=== PATIENT | female | born 1950 | race Caucasian/White ===

== ENCOUNTER 2018-03-10 10:51 | Emergency (ER) | payer MEDICARE, BC ==
[2018-03-10] MEDS ORDERED: Sodium Chloride 0.9% 10 ML Syringe FLUSH PRN (11:14)
[2018-03-10] MEDS ORDERED: Sodium Chloride 0.9% 1,000 ML IV SCH (11:15)
[2018-03-10] MEDS ORDERED: HYDROmorphone 0.5 MG/0.5 ML Syringe IVPUSH PRN (11:51)
[2018-03-10] MEDS ORDERED: Iopamidol 612 MG/ML 100 ML Bottle IV PRN (11:53)
[2018-03-10 13:04] VITALS: BP 125/39
--- NOTE | 2018-03-10 13:29 | CT ---
Abdomen Pelvis w Cont INDICATION: lower right quadrant pain X3 days, N/v TECHNIQUE: CT images of the abdomen and pelvis performed. Coronal reformatted images obtained. IV contrast only Dosage reduction and iterative reconstruction techniques employed. COMPARISON: None FINDINGS: 4 mm nodule right lower lobe likely benign. Fatty infiltration of the liver. Gallbladder surgically absent. Spleen, pancreas, and adrenal glands unremarkable. Tiny cortical cyst right kidne y. No renal calculi or hydronephrosis on either side. Ureters and urinary bladder are clear. Normal a ppendix. Approximately 4 cm diverticulum arising from a mid to distal loop of ileum in the pelvis, se ramesh 2 image 102. No significant wall thickening or fat stranding associated with this diverticulum. Sigmoid diverticulosis without evidence of diverticulitis. No signs of bowel obstruction. Abdominal a latrice normal caliber. No adenopathy seen. Degenerative and hypertrophic change in the spine. Neurostim ulator device entering the sacrum on the right. IMPRESSION: 1. Nothing acute. 2. Prominent small bowel diverticulum, but no acute inflammatory changes associated with this diverti culum. 3. Other nonacute incidental findings, as above.
--- NOTE | 2018-03-10 13:38 | EDM.PDOC ---
ED HPI GENERAL MEDICAL PROBLEM - General Chief Complaint: Abdominal Pain Stated Complaint: RT SIDE PAIN, NAUSEA, LOSS OF APPETITE Time Seen by Provider: 03/10/18 11:09 - History of Present Illness INITIAL COMMENTS - FREE TEXT/NARRATIVE: She is sent from clinic with lower right quad pain. She hasn't felt well for the last couple of days No fever, some nausea. No vomiting; loose stools, which is normal for her. Onset: Gradual Location: Reports: Abdomen (RLQ) Severity: Mild Improves with: Reports: None Worsens with: Reports: None Abdomen Pain Score (Numeric/FACES): 4 - Related Data Allergies Allergy/AdvReac Type Severity Reaction Status Date / Time egg yolk Allergy Blisters Verified 03/10/18 11:08 Influenza Virus Vaccines Allergy Rash Verified 03/10/18 11:08 Beta-Blockers AdvReac Fatigue Verified 03/10/18 11:08 (Beta-Adrenergic Bloc Calcium Channel Blocking AdvReac Drowsiness Verified 03/10/18 11:58 Agent Dilt gemfibrozil AdvReac Cannot Verified 03/10/18 11:08 Remember lisinopril AdvReac Cough Verified 03/10/18 11:08 Home Meds: Home Meds Acetaminophen [Tylenol Extra Strength] 1,000 mg PO Q6H PRN 10/04/16 [History] Cetirizine [ZyrTEC] 10 mg PO DAILY 10/04/16 [History] Diclofenac Sodium [Voltaren] 75 mg PO BIDMEALS 10/04/16 [History] Ergocalciferol (Vitamin D2) [Vitamin D] 5,000 unit PO DAILY 10/04/16 [History] Estradiol [Climara] 1 patch TD WEEKLY 10/04/16 [History] Fenofibrate Nanocrystallized [Triglide] 160 mg PO DAILY 10/04/16 [History] Multivitamin with Minerals [Multiple Vitamin] 1 tab PO DAILY 10/04/16 [History] Omeprazole 40 mg PO DAILY 10/04/16 [History] Sertraline HCl 150 mg PO DAILY 10/04/16 [History] Spironolactone [Aldactone] 50 mg PO DAILY 10/04/16 [History] Triamterene/Hydrochlorothiazid [Dyazide 37.5-25] 1 cap PO DAILY 10/04/16 [ History] traZODone 50 mg PO BEDTIME 10/04/16 [History] Ketoprofen 10% Topical Gel 1 applic TOP TID PRN 10/08/16 [History] Ferrous Sulfate 325 mg PO BID 10/08/17 [History] Glucosamine Sulfate 500 mg PO BID 12/17/17 [History] Sulfamethoxazole/Trimethoprim [Bactrim Ds Tablet] 1 each PO BID #14 tablet 03/10 [Rx] Past Medical History HEENT History: Reports: Impaired Vision Other HEENT History: 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, wears glasses Cardiovascular History: Reports: Arrhythmia, Heart Murmur, High Cholesterol, Hypertension Respiratory History: Reports: Other (See Below) Other Respiratory History: sarcardosis Gastrointestinal History: Reports: Chronic Constipation Other Genitourinary History: in stem bladder implant 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, Musculoskeletal History: Reports: Fracture Other Musculoskeletal History: fx left wrist Psychiatric History: Reports: Depression Endocrine/Metabolic History: Reports: Other (See Below) Other Endocrine/Metabolic History: goiter - Infectious Disease History Infectious Disease History: Reports: Chicken Pox, Measles, Mumps, Rubella - Past Surgical History HEENT Surgical History: Reports: Oral Surgery, Tonsillectomy GI Surgical History: Reports: Cholecystectomy Female Surgical History: Reports: Hysterectomy, Salpingo-Oophorectomy Social & Family History - Family History Family Medical History: Noncontributory - Tobacco Use Smoking Status *Q: Never Smoker - Caffeine Use Caffeine Use: Reports: Soda, Tea - Recreational Drug Use Recreational Drug Use: No ED ROS GENERAL - Review of Systems Review Of Systems: See Below Constitutional: Reports: Fatigue, Decreased Appetite Respiratory: Reports: No Symptoms Cardiovascular: Reports: No Symptoms GI/Abdominal: Reports: Abdominal Pain (RLQ) : Reports: No Symptoms Musculoskeletal: Reports: No Symptoms Skin: Reports: No Symptoms Neurological: Reports: No Symptoms ED EXAM, GENERAL - Physical Exam Exam: See Below Exam Limited By: No Limitations General Appearance: Alert, WD/WN, No Apparent Distress Throat/Mouth: Normal Inspection, Normal Gums, Normal Oropharynx, No Airway Compromise Head: Atraumatic, Normocephalic Neck: Normal Inspection, Full Range of Motion Respiratory/Chest: No Respiratory Distress, Lungs Clear, Normal Breath Sounds Cardiovascular: Regular Rate, Rhythm, No Edema GI/Abdominal: Normal Bowel Sounds, Soft, Guarding, Other (RLQ pain) Back Exam: Normal Inspection, Full Range of Motion Extremities: Normal Inspection, Normal Range of Motion, Non-Tender Neurological: Alert, Oriented, CN II-XII Intact, Normal Cognition, Normal Gait Psychiatric: Normal Affect, Normal Mood Skin Exam: Warm, Dry, No Rash Course - Vital Signs Last Recorded V/S: Last Vital Signs Temp 97.6 F 03/10/18 11:34 Pulse 63 03/10/18 13:02 Resp 13 03/10/18 13:02 BP 125/39 L 03/10/18 13:02 Pulse Ox 87 L 03/10/18 13:02 - Orders/Labs/Meds Orders: Active Orders 24 hr Category Date Time Status Peripheral IV Care [RC] . DIRECTED Care 03/10/18 11:14 Active CULTURE URINE [RM] Stat Lab 03/10/18 14:02 Received UA W/MICROSCOPIC [URIN] Stat Lab 03/10/18 12:40 Ordered Peripheral IV Insertion Adult [OM.PC] Stat Oth 03/10/18 11:14 Ordered Labs: Laboratory Tests 03/10/18 03/10/18 03/10/18 Range/Units 11:23 11:23 11:23 WBC 4.1 L (4.5-11.0) K/uL RBC 3.98 (3.30-5.50) M/uL Hgb 11.3 L (12.0-15.0) g/dL Hct 33.4 L (36.0-48.0) % MCV 84 (80-98) fL MCH 28 (27-31) pg MCHC 34 (32-36) % Plt Count 294 (150-400) K/uL Neut % (Auto) 71 H (36-66) % Lymph % (Auto) 18 L (24-44) % [place] % (Auto) 9 H (2-6) % Eos % (Auto) 2 (2-4) % Baso % (Auto) 1 (0-1) % Sodium 131 L (140-148) mmol/L Potassium 4.7 (3.6-5.2) mmol/L Chloride 95 L (100-108) mmol/L Carbon Dioxide 27 (21-32) mmol/L Anion Gap 13.7 (5.0-14.0) mmol/L BUN 38 H (7-18) mg/dL Creatinine 1.2 H (0.6-1.0) mg/dL Est Cr Clr Drug Dosing 34.50 mL/min Estimated GFR (MDRD) 44 L (>60) Glucose 95 (74-106) mg/dL Calcium 9.6 (8.5-10.1) mg/dL Total Bilirubin 0.4 (0.2-1.0) mg/dL AST 34 (15-37) U/L ALT 33 (12-78) U/L Alkaline Phosphatase 48 (46-116) U/L Total Protein 7.4 (6.4-8.2) g/dL Albumin 4.2 (3.4-5.0) g/dL Globulin 3.2 (2.3-3.5) g/dL Albumin/Globulin Ratio 1.3 (1.2-2.2) Amylase 58 (25-115) U/L Lipase 158 (73-393) U/L Urine Color Urine Appearance Urine pH (4.5-8.0) Ur Specific [place] (1.008-1.030) Urine Protein (NEGATIVE) mg/dL Urine Glucose (UA) (NEGATIVE) mg/dL Urine Ketones (NEGATIVE) mg/dL Urine Occult Blood (NEGATIVE) Urine Nitrite (NEGATIVE) Urine Bilirubin (NEGATIVE) Urine Urobilinogen (NORMAL) mg/dL Ur Leukocyte Esterase (NEGATIVE) Urine RBC (0-5) Urine WBC (0-5) Ur Epithelial Cells Amorphous Sediment Urine Bacteria Urine Mucus 03/10/18 Range/Units 12:40 WBC (4.5-11.0) K/uL RBC (3.30-5.50) M/uL Hgb (12.0-15.0) g/dL Hct (36.0-48.0) % MCV (80-98) fL MCH (27-31) pg MCHC (32-36) % Plt Count (150-400) K/uL Neut % (Auto) (36-66) % Lymph % (Auto) (24-44) % [place] % (Auto) (2-6) % Eos % (Auto) (2-4) % Baso % (Auto) (0-1) % Sodium (140-148) mmol/L Potassium (3.6-5.2) mmol/L Chloride (100-108) mmol/L Carbon Dioxide (21-32) mmol/L Anion Gap (5.0-14.0) mmol/L BUN (7-18) mg/dL Creatinine (0.6-1.0) mg/dL Est Cr Clr Drug Dosing mL/min Estimated GFR (MDRD) (>60) Glucose (74-106) mg/dL Calcium (8.5-10.1) mg/dL Total Bilirubin (0.2-1.0) mg/dL AST (15-37) U/L ALT (12-78) U/L Alkaline Phosphatase (46-116) U/L Total Protein (6.4-8.2) g/dL Albumin (3.4-5.0) g/dL Globulin (2.3-3.5) g/dL Albumin/Globulin Ratio (1.2-2.2) Amylase (25-115) U/L Lipase (73-393) U/L Urine Color Yellow Urine Appearance Clear Urine pH 6.0 (4.5-8.0) Ur Specific [place] 1.010 (1.008-1.030) Urine Protein Negative (NEGATIVE) mg/dL Urine Glucose (UA) Normal (NEGATIVE) mg/dL Urine Ketones Negative (NEGATIVE) mg/dL Urine Occult Blood Negative (NEGATIVE) Urine Nitrite Negative (NEGATIVE) Urine Bilirubin Negative (NEGATIVE) Urine Urobilinogen Normal (NORMAL) mg/dL Ur Leukocyte Esterase Moderate (NEGATIVE) Urine RBC 0-5 (0-5) Urine WBC 10-20 H (0-5) Ur Epithelial Cells Rare Amorphous Sediment Not seen Urine Bacteria Not seen Urine Mucus Not seen Meds: Medications Discontinued Medications Generic Name Dose Route Start Last Admin Trade Name Freq PRN Reason Stop Dose Admin Hydromorphone HCl 0.5 mg 03/10/18 11:51 03/10/18 11:56 Dilaudid IVPUSH 0.5 mg Q1H PRN Administration Pain Sodium Chloride 1,000 mls @ 75 mls/hr 03/10/18 11:15 03/10/18 11:49 Normal Saline IV 75 mls/hr ASDIRECTED NATHAN Administration Sodium Chloride 70 mls @ 3 mls/sec 03/10/18 11:53 03/10/18 12:31 Normal Saline IV 03/10/18 11:54 3 mls/sec ASDIRECTED ONE Administration Iopamidol 93 ml 03/10/18 11:53 03/10/18 12:31 Isovue-300 (61%) IV 03/10/18 12:30 93 ml . DIRECTED PRN Administration RADIOLOGY EXAM Sodium Chloride 10 ml 03/10/18 11:14 03/10/18 11:56 Saline Flush FLUSH 10 ml ASDIRECTED PRN Administration Keep Vein Open Departure - Departure Time of Disposition: 13:36 Disposition: Home, Self-Care 01 Condition: Good Clinical Impression: UTI (urinary tract infection) Abdominal pain Qualifiers: Abdominal location: right lower quadrant Qualified Code(s): R10.31 - Right lower quadrant pain - Discharge Information Prescriptions: Sulfamethoxazole/Trimethoprim [Bactrim Ds Tablet] 1 each PO BID #14 tablet Instructions: Abdominal Pain, Adult, [id number] Referrals: Papi Jeffrey MD [Primary Care Provider] - Forms: ED Department Discharge Additional Instructions: Home, rest Push fluids, eat easily digestible foods. Call for follow up appointment with your doctor within the week Return to ER should pain worsen with fever. - Problem List & Annotations (1) Abdominal pain SNOMED Code(s): 37627435 Code(s): R10.9 - UNSPECIFIED ABDOMINAL PAIN Status: Acute Priority: Medium Qualifiers: Abdominal location: right lower quadrant Qualified Code(s): R10.31 - Right lower quadrant pain - Problem List Review Problem List Initiated/Reviewed/Updated: Yes - My Orders Last 24 Hours: My Active Orders 03/10/18 11:14 Peripheral IV Care [RC] . DIRECTED Peripheral IV Insertion Adult [OM.PC] Stat 03/10/18 12:40 UA W/MICROSCOPIC [URIN] Stat 03/10/18 14:02 CULTURE URINE [RM] Stat - Assessment/Plan Last 24 Hours: My Active Orders 03/10/18 11:14 Peripheral IV Care [RC] . DIRECTED Peripheral IV Insertion Adult [OM.PC] Stat 03/10/18 12:40 UA W/MICROSCOPIC [URIN] Stat 03/10/18 14:02 CULTURE URINE [RM] Stat
== END 2018-03-10 14:08 | disposition home or self-care (01) ==
LOC: JP.ED 10:51
DX: N39.0 Urinary tract infection, site not specified (principal); F32.9 Major depressive disorder, single episode, unspecified; I10 Essential (primary) hypertension; E78.00 Pure hypercholesterolemia, unspecified; Z79.899 Other long term (current) drug therapy; Z91.012 Allergy to eggs; Z88.8 Allergy status to other drugs, medicaments and biological substances; Z88.7 Allergy status to serum and vaccine
CPT/HCPCS: 36415; 74177; 80053; 81001; 82150; 83690; 85025; 87086; 87088; 87186; 96361; 96374; 99284; J1170; J7030; J7050; Q9967

== ENCOUNTER 2021-04-29 14:23 | Emergency (ER) | payer MEDICARE ==
[2021-04-29 15:10] VITALS: BP 166/75; PULSE 70
[2021-04-29] MEDS ORDERED: Acetaminophen/HYDROcodone 325-5 MG Tab PO ONE (15:21)
--- NOTE | 2021-04-29 15:25 | EDM.PDOC ---
ED HPI GENERAL MEDICAL PROBLEM - General Chief Complaint: Lower Extremity Injury/Pain Stated Complaint: FELL ON RIGHT HIP Time Seen by Provider: 04/29/21 15:10 Source of Information: Reports: Patient, Old Records History Limitations: Reports: No Limitations - History of Present Illness INITIAL COMMENTS - FREE TEXT/NARRATIVE: 71 yo female fell early this AM onto her R hip with resulting pain and swelling. Has a pHx of R hip replacement and is concerned. Took ibuprofen and also 1 [place] for pain since the injury. Has been able to bear some weight. No other injuries. 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) (See HPI) - Related Data Allergies Allergy/AdvReac Type Severity Reaction Status Date / Time egg yolk Allergy Blisters Verified 04/29/21 15:14 Influenza Virus Vaccines Allergy Rash Verified 04/29/21 15:14 Beta-Blockers AdvReac Fatigue Verified 04/29/21 15:14 (Beta-Adrenergic Bloc Calcium Channel Blocking AdvReac Drowsiness Verified 04/29/21 15:14 Agent Dilt gemfibrozil AdvReac Cannot Verified 04/29/21 15:14 Remember lisinopril AdvReac Cough Verified 04/29/21 15:14 Home Meds: Home Meds Acetaminophen [Tylenol Extra Strength] 1,000 mg PO Q6H PRN 10/04/16 [History] Cetirizine [ZyrTEC] 10 mg PO DAILY 10/04/16 [History] Ergocalciferol (Vitamin D2) [Vitamin D] 5,000 unit PO DAILY 10/04/16 [History] Fenofibrate Nanocrystallized [Triglide] 160 mg PO DAILY 10/04/16 [History] Multivitamin with Minerals [Multiple Vitamin] 1 tab PO DAILY 10/04/16 [History] Omeprazole 40 mg PO DAILY 10/04/16 [History] Sertraline HCl 150 mg PO DAILY 10/04/16 [History] Spironolactone [Aldactone] 50 mg PO DAILY 10/04/16 [History] Triamterene/Hydrochlorothiazid [Dyazide 37.5-25] 1 cap PO DAILY 10/04/16 [Histor y] traZODone 50 mg PO BEDTIME 10/04/16 [History] Glucosamine Sulfate 500 mg PO BID 12/17/17 [History] Vitamin B Complex [B Complex] 1 tab PO DAILY 02/23/20 [History] Acetaminophen/HYDROcodone [HYDROcodone-Acetaminophen 5-325 MG *] 1 - 2 tab PO Q6H PRN #15 each 04/29/21 [Rx] Past Medical History HEENT History: Reports: Impaired Vision Other HEENT History: 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, wears glasses Cardiovascular History: Reports: Arrhythmia, Heart Murmur, High Cholesterol, Hypertension Respiratory History: Reports: Other (See Below) Other Respiratory History: sarcardosis Gastrointestinal History: Reports: Chronic Constipation Other Genitourinary History: in stem bladder implant 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, Musculoskeletal History: Reports: Fracture Other Musculoskeletal History: fx left wrist Psychiatric History: Reports: Depression Endocrine/Metabolic History: Reports: Other (See Below) Other Endocrine/Metabolic History: goiter - Infectious Disease History Infectious Disease History: Reports: Chicken Pox, Measles, Mumps, Rubella - Past Surgical History HEENT Surgical History: Reports: Oral Surgery, Tonsillectomy GI Surgical History: Reports: Cholecystectomy Female Surgical History: Reports: Hysterectomy, Salpingo-Oophorectomy Social & Family History - Family History Family Medical History: No Pertinent Family History - Caffeine Use Caffeine Use: Reports: Soda, Tea Review of Systems - Review of Systems Review Of Systems: See Below Constitutional: Reports: No Symptoms Musculoskeletal: Reports: Joint Pain (R lateral hip), Joint Swelling (R lateral hip) Skin: Reports: Bruising (R lateral hip) Neurological: Reports: No Symptoms ED EXAM, GENERAL - Physical Exam Exam: See Below Exam Limited By: No Limitations General Appearance: Alert, WD/WN, No Apparent Distress Extremities: Limited Range of Motion (due to pain). No: Normal Inspection (visible hematoma R lateral hip. ), Normal Range of Motion, Non-Tender (tender over lateral hip area. ) Neurological: Alert, Oriented, CN II-XII Intact, Normal Cognition, No Motor/Sensory Deficits Psychiatric: Normal Affect, Normal Mood Skin Exam: Warm, Dry, Intact, No Rash, Ecchymosis (R lateral hip). No: Normal Color, Erythema Course - Vital Signs Last Recorded V/S: Last Vital Signs Temp 36.4 C 04/29/21 15:19 Pulse 70 04/29/21 15:19 Resp 16 04/29/21 15:19 BP 166/75 H 04/29/21 15:19 Pulse Ox 99 04/29/21 15:19 - Orders/Labs/Meds Orders: Active Orders 24 hr Category Date Time Status Hip Min 2V or 3V Rt [CR] Stat Exams 04/29/21 15:17 Taken Meds: Medications Discontinued Medications Generic Name Dose Route Start Last Admin Trade Name Freq PRN Reason Stop Dose Admin Hydrocodone Bitart/Acetaminophen 1 tab 04/29/21 15:21 04/29/21 15:44 Acetaminophen/Hydrocodone 325-5 Mg Tab PO 04/29/21 15:22 1 tab ONETIME ONE Administration - Radiology Interpretation Free Text/Narrative:: R hip X-ray-neg - Re-Assessments/Exams Free Text/Narrative Re-Assessment/Exam: 04/29/21 16:08 Pain is tolerable after [place] Departure - Departure Time of Disposition: 16:10 Disposition: Home, Self-Care 01 Condition: Fair Clinical Impression: Hip hematoma, right Qualifiers: Encounter type: initial encounter Qualified Code(s): S70.01XA - Contusion of right hip, initial encounter - Discharge Information *PRESCRIPTION DRUG MONITORING PROGRAM REVIEWED*: Not Applicable *COPY OF PRESCRIPTION DRUG MONITORING REPORT IN PATIENT JS: Not Applicable Prescriptions: Acetaminophen/HYDROcodone [HYDROcodone-Acetaminophen 5-325 MG *] 1 - 2 tab PO Q6H PRN #15 each PRN Reason: Pain Referrals: Papi Jeffrey MD [Primary Care Provider] - Forms: ED Department Discharge Additional Instructions: Take ibuprofen 400 mg every 6 hrs with food as needed for pain relief. Add either acetaminophen or [place] for added pain relief as needed. Use your walker for added stability. Recheck as needed. Sepsis Event Note (ED) - Focused Exam Vital Signs: Vital Signs Temp Pulse Resp BP Pulse Ox 04/29/21 15:19 36.4 C 70 16 166/75 H 99 04/29/21 15:08 36.4 C 70 16 166/75 H 99 - My Orders Last 24 Hours: My Active Orders 04/29/21 15:17 Hip Min 2V or 3V Rt [CR] Stat - Assessment/Plan Last 24 Hours: My Active Orders 04/29/21 15:17 Hip Min 2V or 3V Rt [CR] Stat
--- NOTE | 2021-04-30 10:53 | CR ---
Hip Min 2V or 3V Rt CLINICAL HISTORY: Hip pain, fall FINDINGS: Patient has a total hip arthroplasty. Components appear well seated. There is a infusion pump or pulse generator which overlies the acetabulum. There is no acute fracture within the femur. No destructive changes are seen. Impression: Total hip arthroplasty appears intact No fracture
== END 2021-04-29 16:45 | disposition home or self-care (01) ==
LOC: JP.ED 14:23
DX: S70.01XA Contusion of right hip, initial encounter (principal); I10 Essential (primary) hypertension; Z91.012 Allergy to eggs; Z88.7 Allergy status to serum and vaccine; Z88.8 Allergy status to other drugs, medicaments and biological substances; Z79.899 Other long term (current) drug therapy; W19.XXXA Unspecified fall, initial encounter
CPT/HCPCS: 73502; 99283; A9270

== ENCOUNTER 2021-05-24 08:37 | Day surgery (SDC) | payer MEDICARE ==
[~2021-05-24 08:37] MED LIST: Midazolam 1 MG/ML 2 ML SDV ONE; Propofol 200 MG/20 ML SDV ONE; Sodium Chloride 0.9% 1,000 ML IV SCH; fentaNYL 100 MCG/2 ML SDV ONE
[2021-05-24] MEDS ORDERED: Acetaminophen 500 MG Tab PO ONE (10:40)
[2021-05-24 11:18] VITALS: BP 164/83; PULSE 68
--- NOTE | 2021-05-25 08:17 | OR ---
DATE OF PROCEDURE: 05/24/2021 SURGEON: Siddhartha Jackson MD PROCEDURE: Colonoscopy. FINDINGS: Diverticulosis, mild. COMPLICATIONS: None. 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 PREOPERATIVE DIAGNOSIS: Family history of colorectal cancer. POSTOPERATIVE DIAGNOSIS: Family history of colorectal cancer. RISKS: Risks, benefits, alternatives, and limitations including but not limited to infection, bleeding, perforation, false positives and false negatives were explained to the patient and wished to proceed. PROCEDURE IN DETAIL: The patient was placed in left lateral decubitus position. Digital rectal exam was performed without abnormality. Scope was introduced and advanced atraumatically to the ileocecal valve. Scope was brought back to the ascending, transverse, descending colon, and retroflexed. No evidence of old or new blood. No masses. No polyps. Diverticulosis was described as mild, limited to sigmoid colon without evidence of diverticulitis or bleeding. Greater than 8 minutes was spent removing the scope. The patient tolerated the procedure well. Approximately 90% of the luminal surface could be seen. Siddhartha Jackson MD /[id number]
== END 2021-05-24 11:17 | disposition home or self-care (01) ==
LOC: JP.SDS 08:37
PROVIDERS: ATTEND Surgery
DX: Z12.11 Encounter for screening for malignant neoplasm of colon (principal); Z80.0 Family history of malignant neoplasm of digestive organs; K57.30 Diverticulosis of large intestine without perforation or abscess without bleeding
CPT/HCPCS: A9270; G0105; J2250; J2704; J3010; J7030

== ENCOUNTER 2024-03-27 11:39 | Emergency (ER) | payer MEDICARE ==
[2024-03-27 13:18] LABS: APPEARANCE,URINE TURBID (CLEAR); BILIRUBIN,URINE NEGATIVE (NEGATIVE); COLOR,URINE YELLOW (YELLOW); GLUCOSE,URINE NEGATIVE (NEGATIVE); KETONES,URINE NEGATIVE (NEGATIVE); LEUKOCYTE ESTERASE,URINE LARGE (NEGATIVE); NITRITE,URINE NEGATIVE (NEGATIVE); OCCULT BLOOD,URINE LARGE (NEGATIVE); PH,URINE 5.5 (5.0-8.0); PROTEIN,URINE 100 mg/dL (NEGATIVE); UROBILINOGEN,URINE 0.2 EU/dL (0.2-1.0)
[2024-03-27 13:28] LABS: AMORPHOUS SEDIMENT,URINE NOT SEEN; BACTERIA,URINE MANY; EPITHELIAL CELLS,URINE NOT SEEN; MUCUS,URINE NOT SEEN; RBC,URINE 30-40 (0-5); WBC,URINE PACKED (0-5)
[2024-03-27] MEDS: Sodium Chloride 0.9% 1,000 ML IV SCH (14:09)
[2024-03-27 14:11] LABS: BASOPHILS ABSOLUTE AUTO 0.02 K/uL (0.00-0.10); BASOPHILS PERCENT AUTO 0.2 % (0.1-1.3); EOSINOPHILS ABSOLUTE AUTO 0.06 K/uL (0.00-0.40); EOSINOPHILS PERCENT AUTO 0.5 % (0.0-5.4); HEMATOCRIT 27.2 % (34.3-46.0); HEMOGLOBIN 9.1 g/dL (11.2-15.5); IMMATURE GRAN ABSOLUTE AUTO 0.29 K/uL (0.00-0.23); IMMATURE GRAN PERCENT AUTO 2.4 % (0.0-0.7); LYMPHOCYTES ABSOLUTE AUTO 0.58 K/uL (0.8-3.3); LYMPHOCYTES PERCENT AUTO 4.8 % (11.4-47.7); MEAN CORPUSCULAR HEMOGLOBIN 24.7 pg (31.6-35.5); MEAN CORPUSCULAR HGB CONC 33.5 g/dL (31.6-35.5); MEAN CORPUSCULAR VOLUME 73.7 fL (81.4-99.0); MONOCYTES PERCENT AUTO 4.1 % (3.3-12.6); NEUTROPHILS ABSOLUTE AUTO 10.72 K/uL (1.0-7.6); PLATELET COUNT,PLT 506 K/uL (130-375); RED BLOOD CELL COUNT 3.69 M/uL (3.77-5.24); WHITE BLOOD CELL COUNT,WBC 12.2 K/uL (3.2-11.0)
[2024-03-27 14:26] LABS: CALCIUM 10.1 mg/dL (8.5-10.1); CREATININE 1.6 mg/dL (0.6-1.0); EST CRCL DRUG DOSING (CG) 22.57 mL/min; POTASSIUM,K 5.2 mmol/L (3.6-5.2)
[2024-03-27 14:27] LABS: ANION GAP 18.2 mmol/L (5.0-14.0)
[2024-03-27 15:29] VITALS: BP 160/73; PULSE 71
== END 2024-03-27 16:30 | disposition home or self-care (01) ==
LOC: JP.ED 11:39
DX: N39.0 Urinary tract infection, site not specified (principal); I10 Essential (primary) hypertension; Z90.49 Acquired absence of other specified parts of digestive tract; Z90.710 Acquired absence of both cervix and uterus; Z79.1 Long term (current) use of non-steroidal anti-inflammatories (NSAID); Z79.899 Other long term (current) drug therapy; Z91.012 Allergy to eggs; Z88.7 Allergy status to serum and vaccine; Z88.8 Allergy status to other drugs, medicaments and biological substances
CPT/HCPCS: 36415; 80048; 81001; 85025; 96360; 96361; 99284; J7030

== ENCOUNTER 2024-04-08 12:57 | Emergency (ER) | payer MEDICARE ==
[2024-04-08 13:28] VITALS: BP 147/64; PULSE 76
== END 2024-04-08 16:57 | disposition critical access hospital (66) ==
LOC: JP.ED 12:57
DX: N28.9 Disorder of kidney and ureter, unspecified (principal); N32.9 Bladder disorder, unspecified; E87.1 Hypo-osmolality and hyponatremia; E87.5 Hyperkalemia; I10 Essential (primary) hypertension; E78.00 Pure hypercholesterolemia, unspecified; Z91.012 Allergy to eggs; Z88.7 Allergy status to serum and vaccine; Z88.8 Allergy status to other drugs, medicaments and biological substances; Z79.899 Other long term (current) drug therapy; Z90.49 Acquired absence of other specified parts of digestive tract; Z90.710 Acquired absence of both cervix and uterus
CPT/HCPCS: 74176; 74176-26; 99284; 99285

== ENCOUNTER 2024-09-21 11:33 | Emergency (ER) | payer MEDICARE ==
[2024-09-21 12:49] LABS: APPEARANCE,URINE CLOUDY (CLEAR); BILIRUBIN,URINE NEGATIVE (NEGATIVE); COLOR,URINE YELLOW (YELLOW); GLUCOSE,URINE NEGATIVE (NEGATIVE); KETONES,URINE NEGATIVE (NEGATIVE); LEUKOCYTE ESTERASE,URINE LARGE (NEGATIVE); NITRITE,URINE NEGATIVE (NEGATIVE); OCCULT BLOOD,URINE MODERATE (NEGATIVE); PH,URINE 5.5 (5.0-8.0); PROTEIN,URINE 100 mg/dL (NEGATIVE); UROBILINOGEN,URINE 0.2 EU/dL (0.2-1.0)
[2024-09-21 12:54] LABS: AMORPHOUS SEDIMENT,URINE RARE; BACTERIA,URINE MODERATE; EPITHELIAL CELLS,URINE NOT SEEN; MUCUS,URINE NOT SEEN; WBC,URINE >100 (0-5)
[2024-09-21 12:56] LABS: BASOPHILS PERCENT AUTO 0.1 % (0.1-1.3); EOSINOPHILS PERCENT AUTO 0.2 % (0.0-5.4); HEMATOCRIT 29.7 % (34.3-46.0); HEMOGLOBIN 10.3 g/dL (11.2-15.5); IMMATURE GRAN ABSOLUTE AUTO 0.08 K/uL (0.00-0.23); LYMPHOCYTES ABSOLUTE AUTO 0.28 K/uL (0.8-3.3); LYMPHOCYTES PERCENT AUTO 3.3 % (11.4-47.7); MEAN CORPUSCULAR HEMOGLOBIN 28.9 pg (31.6-35.5); MEAN CORPUSCULAR HGB CONC 34.7 g/dL (31.6-35.5); MEAN CORPUSCULAR VOLUME 83.2 fL (81.4-99.0); MONOCYTES ABSOLUTE AUTO 0.98 K/uL (0.20-0.90); MONOCYTES PERCENT AUTO 11.7 % (3.3-12.6); NEUTROPHILS ABSOLUTE AUTO 7.01 K/uL (1.0-7.6); NEUTROPHILS PERCENT AUTO 83.7 % (40.0-78.1); PLATELET COUNT,PLT 286 K/uL (130-375); RED BLOOD CELL COUNT 3.57 M/uL (3.77-5.24); WHITE BLOOD CELL COUNT,WBC 8.4 K/uL (3.2-11.0)
[2024-09-21 12:57] LABS: BASOPHILS ABSOLUTE AUTO 0.01 K/uL (0.00-0.10); EOSINOPHILS ABSOLUTE AUTO 0.02 K/uL (0.00-0.40)
[2024-09-21 13:16] LABS: A/G RATIO 0.7 (1.2-2.2); ALANINE AMINOTRANSFERASE,ALT 35 U/L (12-78); ALBUMIN 3.4 g/dL (3.4-5.0); ALKALINE PHOSPHATASE 60 U/L (46-116); ASPARTATE AMNIOTRANSFERASE,AST 34 U/L (15-37); BILIRUBIN TOTAL 0.3 mg/dL (0.2-1.0); BLOOD UREA NITROGEN,BUN 73 mg/dL (7-18); CALCIUM 10.3 mg/dL (8.5-10.1); CARBON DIOXIDE,CO2 23 mmol/L (21-32); CHLORIDE,CL 95 mmol/L (100-108); CREATININE 1.5 mg/dL (0.6-1.0); ESTIMATED GFR 36 mL/min (>60); GLUCOSE RANDOM 133 mg/dL (74-106); POTASSIUM,K 3.1 mmol/L (3.6-5.2); PROTEIN TOTAL,TP 8.2 g/dL (6.4-8.2); SODIUM,NA 130 mmol/L (140-148)
[2024-09-21 13:17] LABS: ANION GAP 15.1 mmol/L (5.0-14.0)
[2024-09-21 13:31] LABS: IRON,FE 9 ug/dL (50-170); PERCENT FE SATURATION 3 % (20-55); TOTAL IRON BINDING CAPACITY 290 ug/dl (250-450)
[2024-09-21] MEDS: Sodium Chloride 0.9% 1,000 ML IV SCH (13:35)
[2024-09-21 13:51] VITALS: BP 160/67; PULSE 82
[2024-09-21] MEDS: cefTRIAXone 2 GM in Sodium Chloride 0.9% 50 ML IV ONE (13:56)
[2024-09-21 14:26] LABS: LACTIC ACID 1.9 mmol/L (0.4-2.0)
[2024-09-21] MEDS: LORazepam 2 MG/ML SDV IVPUSH ONE (14:38)
[2024-09-21] MEDS ORDERED: Sodium Chloride 0.9% 1,000 ML IV SCH (14:45)
[2024-09-21] MEDS ORDERED: Potassium Chloride 20 MEQ Tab.ER PO ONE (14:45)
== END 2024-09-21 15:21 | disposition home or self-care (01) ==
LOC: JP.ED 11:33
DX: N30.01 Acute cystitis with hematuria (principal); E86.0 Dehydration; I10 Essential (primary) hypertension; Z90.49 Acquired absence of other specified parts of digestive tract; Z90.710 Acquired absence of both cervix and uterus; Z79.899 Other long term (current) drug therapy; Z79.1 Long term (current) use of non-steroidal anti-inflammatories (NSAID); Z91.012 Allergy to eggs; Z88.7 Allergy status to serum and vaccine; Z88.8 Allergy status to other drugs, medicaments and biological substances
CPT/HCPCS: 36415; 80053; 81001; 83550; 83605; 85025; 87086; 87088; 87186; 93010; 96361; 96374; 96375; 99284; 99284-25; J0696; J2060; J3490; J7030

== ENCOUNTER 2025-06-23 15:28 | Emergency (ER) | payer MEDICARE ==
[2025-06-23 18:08] VITALS: BP 140/62; PULSE 65
== END 2025-06-23 18:09 | disposition home or self-care (01) ==
LOC: JP.ED 15:28
DX: J06.9 Acute upper respiratory infection, unspecified (principal); B97.89 Other viral agents as the cause of diseases classified elsewhere; I10 Essential (primary) hypertension; E78.00 Pure hypercholesterolemia, unspecified; Z88.1 Allergy status to other antibiotic agents; Z91.0120 Allergy to eggs, unspecified; Z88.7 Allergy status to serum and vaccine; Z88.8 Allergy status to other drugs, medicaments and biological substances; Z79.2 Long term (current) use of antibiotics; Z79.899 Other long term (current) drug therapy; Z90.49 Acquired absence of other specified parts of digestive tract; Z90.710 Acquired absence of both cervix and uterus; Z87.891 Personal history of nicotine dependence
CPT/HCPCS: 71250; 71250-26; 99283